=== PATIENT | female | born 1980 | race Caucasian/White ===

== ENCOUNTER 2018-09-12 14:08 | Emergency (ER) | payer OTHER ==
[2018-09-12 14:13] VITALS: BMI 33.3
--- NOTE | 2018-09-12 14:15 | PDOC ---
History of Present Illness - General Chief Complaint: Lightheaded Stated Complaint: DIZZINESS/WEAKNESS Time Seen by Provider: 09/12/18 14:14 - History of Present Illness Initial Comments: 09/12/18 15:20 The patient is a 38 year old 37 week female who presents for evaluation of dizziness and weakness. The patient reports a "whooshing" sensation in her chest earlier today with associated dizziness and weakness prompting her presentation to the ED. She noted that she felt "sweaty" when this occurred. She otherwise denies fevers, chills, SOB, chest pain, nausea, vomiting, abdominal pain, vaginal bleeding, or changes with urination or bowel movements. Past History - Past Medical History Allergies/Adverse Reactions: Allergies Allergy/AdvReac Type Severity Reaction Status Date / Time No Known Allergies Allergy Verified 09/12/18 16:13 Home Medications: Ambulatory Orders Aspirin [ASA -] 81 mg PO DAILY 09/12/18 Glyburide 2.5 mg PO HS 09/12/18 Glyburide 5 mg PO HS 09/12/18 Insulin Aspart [Novolog] 14 unit SQ AC 09/12/18 Insulin Aspart [Novolog] 14 unit SQ AM 09/12/18 COPD: No Diabetes: Yes (gestational) - Suicide/Smoking/Psychosocial Hx Smoking History: Never smoked Review of Systems - Review of Systems Comments:: 09/12/18 15:24 Constitutional: Generalized weakness. No fevers, chills, malaise HEENT: No Rhinorrhea, nasal congestion, visual changes Cardiovascular: Lightheadedness. No chest pain, syncope, palpitations, Respiratory: No Cough, SOB, Hemoptysis, Gastrointestinal: No Abdominal pain, Nausea, Vomiting, Constipation, Diarrhea, Melena Genitourinary: No Dysuria, Frequency, Urgency, Hesitancy, Hematuria, Flank pain Musculoskeletal: No Myalgia, arthralgia Skin: No rashes, itching, bruising, pallor Neurologic: No Headache, Dizziness, Numbness, Weakness, or Tingling Psychiatric: No Hallucinations. No SI or HI *Physical Exam - Vital Signs Last Vital Signs Temp Pulse Resp BP Pulse Ox 97.6 F 95 H 18 130/70 99 09/12/18 14:10 09/12/18 14:10 09/12/18 14:10 09/12/18 14:10 09/12/18 14:10 - Physical Exam Comments: 09/12/18 15:25 General Appearance: Nourished. No Apparent Distress HEENT: EOMI, SARAVANAN. No Pharyngeal Erythema, Tonsillar Exudate, Tonsillar Erythema Neck: No Cervical Lymphadenopathy Respiratory/Chest: Lungs Clear, Normal Breath Sounds. No Crackles, Rales, Rhonchi, Wheezing Cardiovascular: Regular Rhythm, Regular Rate. No Murmur, Gallops, Rubs Gastrointestinal/Abdominal: Normal Bowel Sounds, Soft. No Guarding, Rebound, Tenderness Musculoskeletal: No CVA Tenderness Extremity: Normal Capillary Refill Integumentary: Normal Color, Dry, Warm Neurologic: Fully Oriented, Alert, Normal Mood/Affect, Normal Response, Heart Score/ECG Review #1 ECG reviewed & interpreted by me at: 15:25 General ECG Interpretation: Sinus Rhythm, Normal Rate, Normal Intervals, No acute ischemic changes ED Treatment Course - LABORATORY CBC & Chemistry Diagram: 09/12/18 13:00 09/12/18 13:00 Medical Decision Making - Medical Decision Making 09/12/18 15:25 The patient is a 38 year old 37 week female who presents for evaluation of dizziness and weakness. Given the patient's history and physical exam, we will obtain a cbc, cmp, troponin, ekg to evaluate further. We will treat the patient with iv fluids and iv tylenol and continue to monitor and reassess while here in the ED. 09/12/18 17:36 CBC, cmp, troponin, are unremarkable. The patient reports improvement in her symptoms after medications. We discussed the case with the patient's physician' s at her clinic at [place] who recommended no further testing and will follow with the patient in a few days. The patient is medically cleared for monitoring with our L&D. We discussed the results, plan, and return precautions with the patient who voiced understanding and is agreeable with the plan. *DC/Admit/Observation/Transfer Diagnosis at time of Disposition: Weakness - Discharge Dispostion Disposition: HOME Condition at time of disposition: Stable - Referrals Referrals: Meg Pérez [Primary Care Provider] - - Patient Instructions Printed Discharge Instructions: DI for Muscle Weakness Additional Instructions: Please return to the ER if you experience concerning or worsening symptoms including worsening difficulty breathing, weakness, or chest pain. Your lab results were normal here in the ER. Please call to schedule a follow up appointment with your primary care provider within 2-3 days to discuss your ER visit and further management of your symptoms. Follow up with your OB this week as scheduled. Return to L&D if you experience any of the following: -regular contractions -decreased movement -vaginal bleeding -your water breaks. - Post Discharge Activity
[2018-09-12] MEDS ORDERED: SODIUM CHLORIDE 1,000 ML IV STA (14:27)
[2018-09-12] MEDS ORDERED: ACETAMINOPHEN 1000 MG/100 ML VIAL (NON FORMULARY) IVPB ONE (14:28)
[2018-09-12] MEDS ORDERED: ACETAMINOPHEN INJECTION 100 ML IVPB ONE (14:48)
--- NOTE | 2018-09-12 15:00 | PDOC ---
Attending Attestation - Medical Decision Making 09/12/18 15:17 [facility] [phone], Dr. Hawkins. 09/12/18 16:[address] Hawkins at [facility]. Case discussed with Dr. Crabtree. <Lynda Murray - Last Filed: 09/12/18 16:15> - Resident Resident Name: Brennan Ordoñez - ED Attending Attestation I have performed the following: I have examined & evaluated the patient, The case was reviewed & discussed with the resident, I agree w/resident's findings & plan, Exceptions are as noted - HPI HPI: 09/12/18 15:19 Ms Smith is a 38 approximately 37 weeks followed at [facility] [place] Pt was at [facility] today She was standing near and CATHY and got a strange sensation in her chest which spontaneously resolved within seconds She describes it as a " vroom" She has noted decreased appetite over the past few days and nausea She felt sweaty when this happened and weak She requested water which improved her symptoms a little bit She then requested to be brought to the ER Pt has noted pain in the lower abdomen and pelvis (+) movement Pt is being followed, bp typically 120/70 En route to the ER, SBP 140s This was very concerning to this patient - Physicial Exam PE: 09/12/18 15:24 Pt is awake and alert RRR CTA bilaterally gravid abdomen no lower extremity edema - Medical Decision Making Pt presents to the ER with non specific complaints of weakness, abnormal chest sensation which passed EKG: NSR, rate of 81 bpm, axis nml, intervals nml, no st elevations, t waves nml Will do: labs ekg re assess 09/12/18 16:07 Laboratory Tests 09/12/18 09/12/18 13:00 13:00 WBC 7.2 Hgb 11.5 Hct 33.8 Plt Count 235 Sodium 138 Potassium 3.8 Chloride 105 Carbon Dioxide 25 BUN 6 L Creatinine 0.6 Random Glucose 75 Creatine Kinase 40 Troponin I < 0.02 09/12/18 16:41 Case reviewed with pt [facility] resident There are no additional tests they would perform Will transfer to L&D for monitoring Clinical Impression: weakness, initial presentation <Falguni Jha - Last Filed: 09/12/18 16:46>
[2018-09-12 15:35] LABS: BASO % 0.3 % (0-2.0); EOS % 1.6 % (0-4.5); HEMATOCRIT 33.8 % (32.4-45.2); HEMOGLOBIN 11.5 GM/dL (10.7-15.3); LYMPH % 13.1 % (8-40); MCH 29.9 pg (25.7-33.7); MCHC 34.1 g/dl (32.0-36.0); MEAN CELL VOLUME 87.7 fl (80-96); MEAN PLT VOLUME 9.1 fl (7.5-11.1); MONO % 5.4 % (3.8-10.2); NEUT % 79.6 % (42.8-82.8); PLATELET COUNT 235 K/MM3 (134-434); RBC 3.85 M/mm3 (3.60-5.2); RDW 14.9 % (11.6-15.6); WHITE BLOOD COUNT 7.2 K/mm3 (4.0-10.0)
[2018-09-12 15:59] LABS: ALK PHOS 166 U/L (45-117); ANION GAP 8 MMOL/L (8-16); BILIRUBIN,TOTAL 0.3 mg/dL (0.2-1); BLOOD UREA NITROGEN 6 mg/dL (7-18); CALCIUM 8.6 mg/dL (8.5-10.1); CHLORIDE 105 mmol/L (98-107); CO2 25 mmol/L (21-32); CREATININE 0.6 mg/dL (0.55-1.3); GLUCOSE,RANDOM 75 mg/dL (74-106); POTASSIUM 3.8 mmol/L (3.5-5.1); SGOT/AST 15 U/L (15-37); SGPT/ALT 22 U/L (13-61); SODIUM 138 mmol/L (136-145); TOT PROT 7.1 g/dl (6.4-8.2)
[2018-09-12 16:24] LABS: URINE APPEARANCE CLEAR; URINE BILIRUBIN NEGATIVE (<2.0 mg/dL); URINE COLOR COLORLESS; URINE GLUCOSE (UA) NEGATIVE (NEGATIVE); URINE KETONE NEGATIVE (NEGATIVE); URINE LEUK ESTERASE NEGATIVE (NEGATIVE); URINE NITRITE NEGATIVE (NEGATIVE); URINE PROTEIN NEGATIVE (NEGATIVE); URINE UROBILINOGEN NEGATIVE mg/dL (0.2-1.0)
[2018-09-12 18:01] VITALS: BP 113/56; PULSE 74; TEMP 98.1
--- NOTE | 2018-09-14 10:38 | EKG ---
Test Reason : Blood Pressure : / mmHG Vent. Rate : 081 BPM Atrial Rate : 081 BPM P-R Int : 140 ms QRS Dur : 094 ms QT Int : 386 ms P-R-T Axes : 034 013 017 degrees QTc Int : 448 ms NORMAL SINUS RHYTHM WITH SINUS ARRHYTHMIA POSSIBLE LEFT ATRIAL ENLARGEMENT BORDERLINE ECG NO PREVIOUS ECGS AVAILABLE Confirmed by MARIA ISABEL FRANKLIN, MITCH ([id number]) on 09/14/2018 10:37:58 AM Referred By: Confirmed By:MITCH NICOLAS MD
== END 2018-09-12 18:15 | disposition home or self-care (01) ==
LOC: JER 14:08
PROC: 3E0337Z Introduction of Electrolytic and Water Balance Substance into Peripheral Vein, Percutaneous Approach (ICD-10-PCS; principal; 2018-09-12)
PROC: 3E033NZ Introduction of Analgesics, Hypnotics, Sedatives into Peripheral Vein, Percutaneous Approach (ICD-10-PCS; 2018-09-12)
DX: O26.893 Other specified pregnancy related conditions, third trimester (principal); R53.1 Weakness; O24.414 Gestational diabetes mellitus in pregnancy, insulin controlled; Z3A.37 37 weeks gestation of pregnancy
CPT/HCPCS: 36415; 80053; 81003; 82550; 82962; 84443; 84484; 85025; 87086; 93005; 93010; 96361; 96374; 99284-25; J0131; J7030